=== PATIENT | male | born 1965 | race Caucasian/White ===

== ENCOUNTER 2023-07-04 06:34 | Observation (INO) | payer MEDICARE ==
[2023-07-01 09:57] LABS: BASOPHILS # (AUTO) 0.1 (0.0-0.1); BASOPHILS % 1.2 % (0.0-1.0); EOSINOPHILS % 0.7 % (0.0-6.0); HEMATOCRIT 51.9 % (38.2-49.6); HEMOGLOBIN 16.7 g/dL (14.0-18.0); LYMPHOCYTES # (AUTO) 1.8 (1.0-3.2); MEAN CORPUSCULAR HEMOGLOBIN 28.5 pg (28-32); MEAN CORPUSCULAR HGB CONC 32.2 g/dL (31-35); MEAN CORPUSCULAR VOLUME 88.6 fL (81-99); MONOCYTES # (AUTO) 0.5 (0.2-0.8); MONOCYTES % 8.8 % (4.4-11.3); NEUTROPHILS # (AUTO) 3.2 (2.1-6.9); NEUTROPHILS % 56.9 % (38.7-80.0); PLATELET COUNT 221 x10e3/uL (140-360); RED BLOOD COUNT 5.86 x10e6/uL (4.3-5.7); RED CELL DISTRIBUTION WIDTH 11.9 % (11.7-14.4); WHITE BLOOD COUNT 5.66 x10e3/uL (4.8-10.8)
[~2023-07-04 06:34] MED LIST: SODIUM CHLORIDE 0.9% 500ML 500 ML ONE; TRANEXAMIC ACID 20 ML ONE; TYLENOL EXTRA500 MG PO; Vancomycin IV 1,000 MG ONE
[2023-07-04] MEDS ORDERED: DEXAMETHASONE SOD PHOS 10 MG/1 ML VIAL ONE (06:54)
[2023-07-04] MEDS ORDERED: CELECOXIB 200 MG CAP ONE (06:54)
[2023-07-04] MEDS ORDERED: LACTATED RINGER'S 1,000 ML ONE (06:54)
[2023-07-04] MEDS ORDERED: CEFAZOLIN SODIUM 2 GM ONE (06:54)
[2023-07-04] MEDS ORDERED: GABAPENTIN 300 MG CAP ONE (06:54)
[2023-07-04] MEDS ORDERED: ONDANSETRON HCL INJ 2MG/ML 2ML 2 MG/ML VIAL IV PRN (10:00)
[2023-07-04] MEDS ORDERED: DIPHENHYDRAMINE HCL INJ 50 MG/ML VIAL IV PRN (10:00)
[2023-07-04] MEDS ORDERED: HYDROCODONE/APAP 7.5MG-325MG 1 EA TAB PO PRN (10:00)
[2023-07-04] MEDS ORDERED: SODIUM CHLORIDE 0.9% 1000ML 1,000 ML IV SCH (10:00)
[2023-07-04] MEDS ORDERED: DOCUSATE SODIUM 100 MG CAP PO PRN (10:00)
[2023-07-04] MEDS ORDERED: HYDROCODONE/APAP 5MG-325MG TAB PO PRN (10:00)
[2023-07-04 10:05] VITALS: TEMP 98.6
[2023-07-04] MEDS ORDERED: MEPERIDINE HCL INJ 25 MG/ML VIAL ONE (10:59)
[2023-07-04] MEDS ORDERED: ONDANSETRON HCL INJ 2MG/ML 2ML 2 MG/ML VIAL ONE (11:47)
[2023-07-04] MEDS ORDERED: ASPIRIN81 MG PO (12:18)
[2023-07-04] MEDS ORDERED: HYDROCODONE/APAP 7.5MG-325MG 1 EA TAB ONE (12:34)
[2023-07-04 13:00] VITALS: BP 132/76; PULSE 72; RESP 16; O2SAT 100
[2023-07-04] MEDS ORDERED: CELECOXIB 100 MG CAP PO SCH (17:00)
[2023-07-04] MEDS ORDERED: ASPIRIN 325 MG TAB PO SCH (17:00)
[2023-07-05] MEDS ORDERED: ACETAMINOPHEN 1000 MG/100 ML IV PRN (10:00)
== END 2023-07-04 13:23 | disposition home health service (06) ==
LOC: OR 06:34 → PACU V 09:53
PROVIDERS: ADMIT Specialist; ATTEND Specialist
DX: M16.11 Unilateral primary osteoarthritis, right hip (principal); M17.11 Unilateral primary osteoarthritis, right knee; M24.522 Contracture, left elbow; M24.521 Contracture, right elbow; G47.33 Obstructive sleep apnea (adult) (pediatric); E66.01 Morbid (severe) obesity due to excess calories; Z68.38 Body mass index [BMI] 38.0-38.9, adult; Z01.812 Encounter for preprocedural laboratory examination; Z79.82 Long term (current) use of aspirin; Z79.899 Other long term (current) drug therapy
CPT/HCPCS: 27130; 36415; 72170; 85025; 86850; 86900; 97116; 97161; 97530; C1713 ×2; C1776 ×2; G0378; J0171; J1100; J2175; J2405; J2795; J3370; J7040; J7121

== ENCOUNTER 2023-10-03 07:01 | Observation (INO) | payer MEDICARE ==
[2023-09-30 10:14] LABS: BASOPHILS # (AUTO) 0.1 (0.0-0.1); EOSINOPHILS # (AUTO) 0.1 (0.0-0.4); EOSINOPHILS % 0.8 % (0.0-6.0); HEMATOCRIT 48.3 % (38.2-49.6); HEMOGLOBIN 16.1 g/dL (14.0-18.0); LYMPHOCYTES # (AUTO) 1.6 (1.0-3.2); LYMPHOCYTES % 26.7 % (18.0-39.1); MEAN CORPUSCULAR HEMOGLOBIN 28.6 pg (28-32); MEAN CORPUSCULAR HGB CONC 33.3 g/dL (31-35); MEAN CORPUSCULAR VOLUME 85.9 fL (81-99); MONOCYTES # (AUTO) 0.6 (0.2-0.8); MONOCYTES % 10.5 % (4.4-11.3); NEUTROPHILS # (AUTO) 3.6 (2.1-6.9); NEUTROPHILS % 60.8 % (38.7-80.0); PLATELET COUNT 224 x10e3/uL (140-360); RED BLOOD COUNT 5.62 x10e6/uL (4.3-5.7); RED CELL DISTRIBUTION WIDTH 11.9 % (11.7-14.4); WHITE BLOOD COUNT 5.91 x10e3/uL (4.8-10.8)
[~2023-10-03 07:01] MED LIST changes: +ASPIRIN81 MG PO; -SODIUM CHLORIDE 0.9% 500ML 500 ML ONE; -TRANEXAMIC ACID 20 ML ONE; -Vancomycin IV 1,000 MG ONE
[2023-10-03] MEDS ORDERED: IBUPROFEN600 MG PO (07:46)
[2023-10-03] MEDS: CEFAZOLIN SODIUM 2 GM ONE (07:48)
[2023-10-03] MEDS: LACTATED RINGER'S 1,000 ML ONE (07:48)
[2023-10-03] MEDS: CELECOXIB 200 MG CAP ONE (07:49)
[2023-10-03] MEDS: GABAPENTIN 300 MG CAP ONE (07:49)
[2023-10-03] MEDS: DEXAMETHASONE SOD PHOS 10 MG/1 ML VIAL ONE (07:49)
[2023-10-03] MEDS ORDERED: MIDAZOLAM HCL 2 MG/2 ML VIAL ONE (09:06)
[2023-10-03] MEDS ORDERED: FENTANYL CITRATE/PF 100MCG/2 ML INJ ONE ×2 (09:06→12:47)
[2023-10-03] MEDS ORDERED: SODIUM CHLORIDE 0.9% 250ML 250 ML ONE (09:09)
[2023-10-03] MEDS ORDERED: Vancomycin IV 500 MG ONE (09:09)
[2023-10-03] MEDS ORDERED: TRANEXAMIC ACID 20 ML ONE (09:09)
[2023-10-03] MEDS ORDERED: DIPHENHYDRAMINE HCL INJ 50 MG/ML VIAL IV PRN (11:00)
[2023-10-03] MEDS ORDERED: ONDANSETRON HCL INJ 2MG/ML 2ML 2 MG/ML VIAL IV PRN (11:00)
[2023-10-03] MEDS ORDERED: SODIUM CHLORIDE 0.9% 1000ML 1,000 ML IV SCH (11:00)
[2023-10-03] MEDS ORDERED: DOCUSATE SODIUM 100 MG CAP PO PRN (11:00)
[2023-10-03] MEDS ORDERED: HYDROCODONE/APAP 7.5MG-325MG 1 EA TAB PO PRN (11:00)
[2023-10-03] MEDS ORDERED: ACETAMINOPHEN 1000 MG/100 ML 100 ML IV ONE (11:43)
[2023-10-03] MEDS: ACETAMINOPHEN 1000 MG/100 ML IV ONE (11:46)
[2023-10-03] MEDS ORDERED: PROPOFOL IV EMULSION 10 MG/ML 20 ML VIAL ONE (12:39)
[2023-10-03] MEDS ORDERED: ONDANSETRON HCL INJ 2MG/ML 2ML 2 MG/ML VIAL ONE (12:39)
[2023-10-03] MEDS ORDERED: SEVOFLURANE INHAL SOLN 250 ML PEN BTL ONE (12:39)
[2023-10-03] MEDS ORDERED: GLYCOPYRROLATE INJ 0.2 MG/ML VIAL ONE (12:39)
[2023-10-03] MEDS ORDERED: LIDOCAINE HCL 2% LOCAL INJ 5 ML SDV VIAL INJ ONE (12:39)
[2023-10-03] MEDS ORDERED: NEOSTIGMINE 1 MG/ML 10ML VIAL ONE (12:39)
[2023-10-03] MEDS ORDERED: ROCURONIUM BROMIDE 10 MG/ML 5ML VIAL IV ONE (12:39)
[2023-10-03] MEDS ORDERED: KETOROLAC TROMETHAMINE 30 MG/ML VIAL ONE (12:39)
[2023-10-03] MEDS ORDERED: DEXAMETHASONE SOD PHOS INJ 4 MG/ML SDV ONE (12:39)
[2023-10-03] MEDS ORDERED: EPHEDRINE SULFATE INJ 50 MG/ML VIAL ONE (12:39)
[2023-10-03] MEDS ORDERED: Morphine 10mg syringe 10 MG/ML INJ ONE (12:47)
[2023-10-03] MEDS: ONDANSETRON HCL INJ 2MG/ML 2ML 2 MG/ML VIAL ONE (13:10)
[2023-10-03] MEDS ORDERED: HYDROCODONE/APAP 5MG-325MG TAB ONE (14:07)
[2023-10-03] MEDS: HYDROCODONE/APAP 5MG-325MG TAB PO PRN (14:10)
[2023-10-03 14:30] VITALS: BP 138/71; PULSE 67; RESP 17; O2SAT 96
[2023-10-03] MEDS ORDERED: CELECOXIB 200 MG CAP PO SCH (17:00)
[2023-10-03] MEDS ORDERED: ASPIRIN 325 MG TAB PO SCH (17:00)
[2023-10-03] MEDS ORDERED: ACETAMINOPHEN 1000 MG/100 ML IV PRN (18:00)
== END 2023-10-03 14:45 | disposition home health service (06) ==
LOC: OR 07:01 → PACU V 10:56
PROVIDERS: ADMIT Specialist; ATTEND Specialist
DX: M16.12 Unilateral primary osteoarthritis, left hip (principal); Z96.641 Presence of right artificial hip joint; Z01.812 Encounter for preprocedural laboratory examination; Z79.82 Long term (current) use of aspirin
CPT/HCPCS: 27130; 36415; 72170; 85025; 86850; 86900; 97116; 97161; C1713 ×2; C1776 ×2; G0378; J0131; J0171; J0690; J1100 ×2; J1885; J2001; J2250; J2270; J2405; J2704; J2710; J2795; J3010; J3370; J7050; J7121